=== PATIENT | female | born 1995 ===

== ENCOUNTER 2016-07-23 23:20 | Emergency (ER) | payer BC, MEDICAID ==
--- NOTE | ~2016-07-23 | ER ---
PATIENT'S NAME: MATTHEW CORRALES [facility] AGE: 20 Y [address] ROOM: [place] [address] LOCATION: ED ADMIT DATE: 07/23/2016 ER/Outpatient Report DISCHARGE DATE: 07/24/2016 FAMILY PHYSICIAN: Johnson Gonzalez MD ATTENDING PHYSICIAN: Ginna Braswell HISTORY OF PRESENT ILLNESS: A 20-year-old female who presents today with chief complaint of "I feel weird, desperate." The patient says that it started about 4 hours ago. The patient reports that at that time she had some shortness of breath, palpitations, hands tingling, and feeling sort of weak all over. All these symptoms have resolved except she says she still feels sort of desperate and unwell, and she wanted to just get checked out for that. She says that this has happened before, although it has never been this bad. Denies any stress factors. PAST MEDICAL HISTORY: Includes anxiety. PAST SURGICAL HISTORY: None. SOCIAL HISTORY: She does not smoke, drink, or use any drugs. MEDICATIONS: She is on control at this time. ALLERGIES: NONE. REVIEW OF SYSTEMS: Reviewed by me and negative with the exception of those discussed in the HPI. PHYSICAL EXAMINATION: VITAL SIGNS: The patient is 5 feet 7 inches. Her weight is 56 kilos. Blood pressure is 132/91, heart rate 75, respiratory rate 16, temperature is 98.8, and saturations are 99% on room air. GENERAL: The patient looks anxious. She has sort of a pressured speech. She is not actively vomiting or retching. She is not hyperventilating though. She is alert and oriented x4. HEENT: Pupils are equal and reactive to light. GCS is 15. Normal pupils inspection. HEART: Rate is regular rate and rhythm, not tachy. LUNGS: Sounds are clear. ABDOMEN: Soft, nontender, nondistended. PATIENT'S NAME: MATTHEW CORRALES [facility] AGE: 20 Y [address] ROOM: [place] [address] LOCATION: ED ADMIT DATE: 07/23/2016 ER/Outpatient Report DISCHARGE DATE: 07/24/2016 FAMILY PHYSICIAN: Johnson Gonzalez MD ATTENDING PHYSICIAN: Ginna Braswell EXTREMITIES: Moves all extremities without any difficulty. NEURO: Grasp strength bilaterally equal. Strength bilateral upper extremities 5/5, lower extremities 5/5. Cranial nerves 2 through 12 are intact. EMERGENCY ROOM COURSE: I gave the patient Ativan 0.5 mg and then reassessed her about 30 minutes later and she said she felt a lot better. She feels ready to go home. I do think that there is no red flags on her history or physical exam. This is likely anxiety as it is what she had before. She has no abnormal vital signs or any complaints at this time, so we will be letting her to go. IMPRESSION: Anxiety. MD PREM PINZON/modl /[id number] d: 07/24/16 0637 t: 07/26/16 0028, OUTPATIENT REPORT
== END 2016-07-24 00:24 | disposition disaster alternative care site (69) ==
LOC: GMED 23:20
DX: F41.9 Anxiety disorder, unspecified (principal)